=== PATIENT | female | born 1980 | race Caucasian/White ===

== ENCOUNTER 2018-01-01 05:44 | Day surgery (SDC) | payer OTHER ==
[~2018-01-01] VITALS: Ht 160 cm; Wt 78.5 kg
[2018-01-01] MEDS ORDERED: CEFAZOLIN SOD 1 GM/ ISO 50 ML PREMIX IV ONE (07:00)
[2018-01-01] MEDS ORDERED: CEFAZOLIN 1 GM IVPB PREMIX 50 ML IV ONE (07:35)
[2018-01-01] MEDS ORDERED: fentaNYL CITRATE 250 MCG/5 ML AMP IV ONE (07:35)
[2018-01-01] MEDS ORDERED: NS 1000 ML BAG IV ONE (07:35)
[2018-01-01] MEDS ORDERED: ROCURONIUM BROMIDE 10 MG/ML (ZEMURON) IV ONE (07:35)
[2018-01-01] MEDS ORDERED: NS IRRIG SOLN 1000 ML IR ONE (07:35)
[2018-01-01] MEDS ORDERED: ONDANSETRON HCL 4 MG/2 ML VIAL IVP ONE (07:35)
[2018-01-01] MEDS ORDERED: PROPOFOL 200MG/ 20ML VIAL (DIPRIVAN) IV ONE (07:35)
[2018-01-01] MEDS ORDERED: SUGAMMADEX SODIUM 200 MG/2 ML VIAL IV ONE (07:35)
[2018-01-01] MEDS ORDERED: SEVOFLURANE 15 MIN GAS INH ONE (07:35)
[2018-01-01] MEDS ORDERED: MIDAZOLAM HCL 5 MG/5 ML VIAL IVP ONE (07:35)
[2018-01-01] MEDS ORDERED: IOHEXOL 50 ML IV ONE (07:38)
[2018-01-01] MEDS ORDERED: LR 1,000 ML IV SCH (08:20)
[2018-01-01] MEDS ORDERED: MORPHINE 4 MG/ML INJ. SYRINGE IVP PRN ×3 (08:30)
[2018-01-01] MEDS ORDERED: METOCLOPRAMIDE HCL 10 MG/2 ML VIAL IVP PRN (08:30)
[2018-01-01] MEDS ORDERED: D5/0.45 NS 1,000 ML IV SCH (08:37)
[2018-01-01] MEDS ORDERED: HYDROcodone/ACETAMIN 5-325 MG TAB (NORCO/ VICODIN) PO PRN ×2 (08:45)
[2018-01-01] MEDS ORDERED: HYDROmorphone 1 MG INJ. 1 MG/ML AMPUL IVP PRN (08:45)
[2018-01-01] MEDS ORDERED: METOCLOPRAMIDE HCL 10 MG/2 ML VIAL IVP ONE ×2 (09:00→09:15)
[2018-01-01] MEDS ORDERED: METOCLOPRAMIDE HCL 10 MG/2 ML VIAL ONE (09:04)
[2018-01-01 10:01] VITALS: BP_SYST 118
[2018-01-01] MEDS ORDERED: HYDROcodone/ACETAMIN 5-325 MG TAB (NORCO/ VICODIN) ONE (10:22)
== END 2018-01-01 11:20 | disposition home or self-care (01) ==
LOC: SDS 05:44 → SMU 05:46 → SDS 11:20
PROVIDERS: ATTEND Colon & Rectal Surgery
DX: K81.1 Chronic cholecystitis (principal); J45.909 Unspecified asthma, uncomplicated; M54.12 Radiculopathy, cervical region; E78.1 Pure hyperglyceridemia; Z68.31 Body mass index [BMI] 31.0-31.9, adult; Z79.899 Other long term (current) drug therapy; E66.3 Overweight
CPT/HCPCS: 47563; 76000; 88304; C1727; C1758; C9399; J0690; J2250; J2405; J2704; J2765; J3010; J7030; J7120; Q9967